=== PATIENT | female | born 1995 | race Caucasian/White ===

== ENCOUNTER 2024-06-05 22:53 | Emergency (ER) | payer OTHER ==
[~2024-06-05] VITALS: Ht 160 cm; Wt 88.5 kg
[2024-06-05] MEDS ORDERED: OXYMETAZOLINE HCL NASAL SPRAY 30 ML BOTTLE NS ONE (23:32)
[2024-06-05] MEDS: OXYMETAZOLINE HCL NASAL SPRAY 30 ML BOTTLE NS ONE (23:38)
[2024-06-06] MEDS ORDERED: TRANEXAMIC ACID 1,000 MG/10 ML VIAL ONE (01:06)
[2024-06-06] MEDS: TRANEXAMIC ACID 1,000 MG/10 ML VIAL NS ONE (01:18)
[2024-06-06] MEDS ORDERED: SODI88SP18 BNOSTRILS (02:09)
[2024-06-06] MEDS ORDERED: OXYM15MI4 NS (02:09)
[2024-06-06 02:15] VITALS: BP 132/86; TEMP 98.3; O2SAT 99
== END 2024-06-06 02:15 | disposition home or self-care (01) ==
LOC: ER 23:15
DX: R04.0 Epistaxis (principal)